=== PATIENT | male | born 1990 | race Two or more races ===

== ENCOUNTER 2022-03-31 02:05 | Emergency (ER) | payer OTHER ==
[~2022-03-31] VITALS: Ht 182.9 cm; Wt 113.4 kg
[2022-03-31] MEDS ORDERED: TREXIMET 85-501 EACH PO (06:09)
[2022-03-31] MEDS ORDERED: BENADRYL25 MG PO (06:18)
[2022-03-31] MEDS ORDERED: NAPROXEN500 MG PO (06:18)
== END 2022-03-31 06:12 | disposition home or self-care (01) ==
LOC: ER 02:05
DX: R51.9 Headache, unspecified (principal)

== ENCOUNTER 2022-07-29 08:03 | Outpatient (CLI) | payer OTHER ==
[~2022-07-29 08:03] MED LIST: BENADRYL25 MG PO; NAPROXEN500 MG PO; TREXIMET 85-501 EACH PO
== END 2022-07-29 10:48 | disposition home or self-care (01) ==
LOC: MRI 08:03
DX: G43.711 Chronic migraine without aura, intractable, with status migrainosus (principal)
CPT/HCPCS: 70553

== ENCOUNTER 2022-07-29 08:52 | Outpatient (CLI) | payer OTHER | END 2022-07-29 08:53 | disposition home or self-care (01) | LOC: LAB 08:52 | PROVIDERS: ATTEND Radiology Diagnostic Radiology | DX: R10.9 Unspecified abdominal pain (principal) ==